=== PATIENT | female | born 1985 | race Caucasian/White ===

== ENCOUNTER 2017-07-13 10:22 | Emergency (ER) | payer OTHER ==
[~2017-07-13] VITALS: Ht 162.6 cm; Wt 72.6 kg
--- NOTE | ~2017-07-13 | CR63 ---
[facility] A Service of [facility] RADIOLOGY TEXT RESULTS PATIENT: RIMMA MARTINEZ LOCATION: [facility] : 81 UNIT #: [id number] AGE: [address]: Hever Antonio MD SEX: F ORDER DR: [id number] [facility] [address] [place], [place] [address] [id number] P MR#: [id number] Acc #: [id number] NAME: RIMMA MARTINEZ : 1985 SEX: F STUDY DATE/TIME: 07/13/2017 11:23 UNIT: [facility] ROOM: STUDY DESCRIPTION: CR Chest 2 View Attending Physician: Hever Antonio M.D. Ordering Physician: Hever Antonio M.D. MEDICAL IMAGING REPORT This report is preliminary unless electronic signature is present EXAM PA and lateral chest INDICATIONS Shortness of breath today. Right anterior rib pain. COMPARISON No comparisons. FINDINGS The lungs are well expanded and clear. The heart size is normal. Minimal rightward curve of the thoracic spine. No definite acute osseous abnormality. IMPRESSION No active disease. Dictated by... James De M.D. THIS IS AN ELECTRONICALLY VERIFIED REPORT James De M.D. at 07/14/2017 7:09 AM Chandan TD: 07/13/2017 11:50 JOB #: [id number] MEDICAL IMAGING REPORT Page 1 of 1 COPY
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
[~2017-07-13 10:22] MED LIST: GUAIFENSEN DM; ZYRTEC-D T1 TAB.SR . PO
== END 2017-07-13 12:43 | disposition home or self-care (01) ==
LOC: CED 10:22
DX: S09.90XA Unspecified injury of head, initial encounter (principal); S01.01XA Laceration without foreign body of scalp, initial encounter; S20.219A Contusion of unspecified front wall of thorax, initial encounter; F32.9 Major depressive disorder, single episode, unspecified; F17.200 Nicotine dependence, unspecified, uncomplicated; Z79.899 Other long term (current) drug therapy; Y08.89XA Assault by other specified means, initial encounter
CPT/HCPCS: 70450; 71020; 99284